=== PATIENT | male | born 1945 | race Caucasian/White ===

== ENCOUNTER 2016-10-17 22:09 | Emergency (ER) | payer BC, OTHER ==
[~2016-10-17] VITALS: Ht 170.2 cm; Wt 87.1 kg
[~2016-10-17 22:09] MED LIST: AMLO1TAB25 PO; ASPI-1063 PO
[2016-10-17 22:28] VITALS: BP_SYST 157
--- NOTE | 2016-10-17 22:52 | NUR ---
Patient to ER bed 05 to gown for evaluation. Side rails up. Report given to Nohemy .
--- NOTE | 2016-10-17 22:54 | NUR ---
ER MD Snyder at bedside for evaluation
--- NOTE | 2016-10-17 22:55 | NUR ---
Patient to ER C/O splinter stuck in his right sole of the foot, today. C/O 10/14 pain. Mild reddness at site. AAOx4, unlabored breathing, no signs of acute distress.
[2016-10-17] MEDS ORDERED: LIDOCAINE 1%, 20 ML MDV 20 ML ONE (23:02)
[2016-10-17 23:10] VITALS: BP_SYST 135
--- NOTE | 2016-10-17 23:10 | NUR ---
Patient given written and verbal discharge instructions and verbalizes understanding. ER MD Snyder discussed with patient the results and treatment provided. Patient in stable condition. ID arm band removed. Rx of tylenol & keflex given. Patient educated on pain management and to follow up with PMD. Pain Scale 010. Opportunity for questions provided and answered.
== END 2016-10-17 23:10 | disposition home or self-care (01) ==
LOC: SED 22:09
DX: S91.341A Puncture wound with foreign body, right foot, initial encounter (principal); E11.9 Type 2 diabetes mellitus without complications; W22.8XXA Striking against or struck by other objects, initial encounter; Y93.89 Activity, other specified; Y92.89 Other specified places as the place of occurrence of the external cause; Y99.8 Other external cause status
CPT/HCPCS: 99284; J2001

== ENCOUNTER 2019-02-04 08:36 | Emergency (ER) | payer OTHER ==
[~2019-02-04] VITALS: Ht 167.6 cm; Wt 88.5 kg
[~2019-02-04 08:36] MED LIST changes: -ASPI-1063 PO; +ASPI-1153 PO
[2019-02-04 08:45] VITALS: BP_SYST 149
--- NOTE | 2019-02-04 08:49 | NUR ---
Patient to ER bed 7 to gown for evaluation. Side rails up. Report given to Maricarmen REIS.
--- NOTE | 2019-02-04 08:55 | NUR ---
Patient presented to ER with C/O left chest wall pain & left back shoulder pain x1 week. Patient A&Ox4, afebrile, ambulatory to ER, denies N/V/D, pain 01/14, arrived to ER with from home. Patient states he fell last week and since the fall he has been experiencing pain, medicating at home with OTC Tylenol and naproxen this am. Patient states he has health Hx: HTN, diabetes, Hypercholesterol, stent 2008.
--- NOTE | 2019-02-04 09:13 | NUR ---
ER Dr. Ro at bedside examining patient.
--- NOTE | 2019-02-04 09:20 | NUR ---
Patient to ER bed 7 from radiology, ambulating with staff
[2019-02-04] MEDS ORDERED: KETOROLAC TROMETHAMINE 60 MG/2 ML VIAL IM ONE (09:45)
[2019-02-04 10:45] VITALS: BP_SYST 144
--- NOTE | 2019-02-04 10:45 | NUR ---
Patient given written and verbal discharge instructions and verbalizes understanding. ER MD discussed with patient the results and treatment provided. Patient in stable condition. ID arm band removed. Rx Robaxin,Tramodol, Motrin given. Patient educated on pain management and to follow up with PMD. Pain Scale 5/10. Opportunity for questions provided and answered. Medication side effect fact sheet provided.
== END 2019-02-04 10:45 | disposition home or self-care (01) ==
LOC: SED 08:36
DX: S46.811A Strain of other muscles, fascia and tendons at shoulder and upper arm level, right arm, initial encounter (principal); E11.9 Type 2 diabetes mellitus without complications; I10 Essential (primary) hypertension; Z79.82 Long term (current) use of aspirin; Z88.8 Allergy status to other drugs, medicaments and biological substances; W06.XXXA Fall from bed, initial encounter; Y93.89 Activity, other specified; Y92.89 Other specified places as the place of occurrence of the external cause; Y99.8 Other external cause status
CPT/HCPCS: 71045; 71100; 73030; 96372; 99283; J1885